=== PATIENT | female | born 1995 | race Two or more races ===

== ENCOUNTER 2020-05-13 09:49 | Emergency (ER) | payer OTHER ==
[~2020-05-13] VITALS: Ht 162.6 cm; Wt 76.2 kg
[2020-05-13 10:50] VITALS: BP 122/61
[2020-05-13] MEDS ORDERED: IBUPROFEN 800 MG TAB PO ONE (12:15)
[2020-05-13] MEDS ORDERED: METHOCARBAMOL 500 MG TAB PO ONE (12:15)
== END 2020-05-13 13:14 | disposition home or self-care (01) ==
LOC: ER 09:49
DX: S16.1XXA Strain of muscle, fascia and tendon at neck level, initial encounter (principal); S63.501A Unspecified sprain of right wrist, initial encounter; V43.52XA Car driver injured in collision with other type car in traffic accident, initial encounter; Y93.89 Activity, other specified; Y92.488 Other paved roadways as the place of occurrence of the external cause; Y99.8 Other external cause status
CPT/HCPCS: 70450; 72040; 73110

== ENCOUNTER 2022-11-26 04:34 | Emergency (ER) | payer OTHER ==
[~2022-11-26] VITALS: Ht 165.1 cm; Wt 119.6 kg
[2022-11-26 04:45] VITALS: BP 147/72; PULSE 102; RESP 20; O2SAT 98
== END 2022-11-26 06:25 | disposition left against medical advice (07) ==
LOC: ER 04:34
DX: F41.9 Anxiety disorder, unspecified (principal); R11.0 Nausea; Z53.21 Procedure and treatment not carried out due to patient leaving prior to being seen by health care provider

== ENCOUNTER 2023-04-27 15:33 | Emergency (ER) | payer OTHER ==
[~2023-04-27] VITALS: Ht 162.6 cm; Wt 118.5 kg
[2023-04-27 18:41] VITALS: BP 135/76; PULSE 96; RESP 20; TEMP 97.2; O2SAT 98
[2023-04-27] MEDS ORDERED: BACDST PO (20:34)
== END 2023-04-27 21:49 | disposition home or self-care (01) ==
LOC: ER 15:33
DX: L02.212 Cutaneous abscess of back [any part, except buttock and flank] (principal)
CPT/HCPCS: 10060